=== PATIENT | female | born 1960 | race Caucasian/White ===

== ENCOUNTER 2024-03-13 13:44 | Day surgery (SDC) | payer BC, SELFPAY ==
[2024-03-09 13:56] VITALS: BMI 24.8
[2024-03-09 14:07] LABS: Hematocrit 38.9 % (37.0-47.0); Hemoglobin 13.3 g/dL (12.0-16.0); Mean Corp Hgb Conc. 34.2 g/dL (33.0-37.0); Mean Corpuscular Hgb 29.9 pg (27.0-31.0); Mean Corpuscular Volume 87.4 fL (81.0-99.0); Mean Platelet Volume 9.4 fL (7.4-10.4); Platelet Count 339 10^3/uL (130-400); Red Blood Cell Count 4.45 10^6/uL (4.20-5.40); Red Cell Dist. Width 12.9 % (11.5-14.5); White Blood Cell Count 8.4 10^3/uL (4.8-10.8)
[2024-03-13 13:25] VITALS: BMI 24.7
[2024-03-13 13:30] VITALS: BP 126/80; BMI 24.7
[2024-03-13] MEDS: AFRIN NASAL SPRAY 2 SPRAYS NASAL (13:48)
[2024-03-13] MEDS: NORMOSOL-R 1000 IV (13:49)
[2024-03-13 15:27] VITALS: BP 109/70
[2024-03-13 15:30] VITALS: BP 140/73
[2024-03-13 15:45] VITALS: BP 131/72
== END 2024-03-13 16:03 | disposition home or self-care (01) ==
LOC: GI 13:44
PROVIDERS: ATTENDING PHYSICIAN Otolaryngology Facial Plastic Surgery
DX: G47.33 Obstructive sleep apnea (adult) (pediatric) (principal)
CPT/HCPCS: 42975; 36415; 85027; 93005

== ENCOUNTER 2024-05-22 06:06 | Day surgery (SDC) | payer BC, SELFPAY ==
[2024-05-22] VITALS (11 sets, daily range): BP systolic 105–136; BP diastolic 62–74; BMI 24.2
[2024-05-22] MEDS: DILAUDID 0.25 MG IV ×2 (11:35→12:04)
== END 2024-05-22 13:30 | disposition home or self-care (01) ==
LOC: SDS 06:06
PROVIDERS: ATTENDING PHYSICIAN Otolaryngology Facial Plastic Surgery
DX: G47.33 Obstructive sleep apnea (adult) (pediatric) (principal); Z68.24 Body mass index [BMI] 24.0-24.9, adult
CPT/HCPCS: 64582; 71045; C1767; C1778

== ENCOUNTER → 2024-08-27 17:43 | Outpatient (REF) | payer BC, SELFPAY | LOC: WDC 17:43 | PROVIDERS: ATTENDING PHYSICIAN Nurse Practitioner Family | DX: Z12.31 Encounter for screening mammogram for malignant neoplasm of breast (principal) | CPT/HCPCS: 77063; 77067 ==

== ENCOUNTER → 2024-10-15 13:29 | Outpatient (REF) | payer BC, SELFPAY | LOC: DHSLP 13:29 | PROVIDERS: ATTENDING PHYSICIAN Internal Medicine Critical Care Medicine; FAMILY PHYSICIAN Student in an Organized Health Care Education/Training Program | DX: G47.33 Obstructive sleep apnea (adult) (pediatric) (principal) | CPT/HCPCS: 95810 ==

== ENCOUNTER 2024-11-13 06:15 | Day surgery (SDC) | payer BC, SELFPAY | END 2024-11-13 15:09 | disposition home or self-care (01) | LOC: GI 06:15 | PROVIDERS: ATTENDING PHYSICIAN Specialist | DX: Z12.11 Encounter for screening for malignant neoplasm of colon (principal); D12.5 Benign neoplasm of sigmoid colon; K57.30 Diverticulosis of large intestine without perforation or abscess without bleeding | CPT/HCPCS: 45385; 88305 ==